=== PATIENT | female | born 1990 | race Caucasian/White ===

== ENCOUNTER 2016-07-04 00:46 | Emergency (ER) | payer OTHER ==
[~2016-07-04] VITALS: Ht 152.4 cm; Wt 90.7 kg
[~2016-07-04 00:46] MED LIST: /AUGM875TA OR; IBUP80TA PO; VICO5TAB OR; VITAPRTA PO
[2016-07-04] MEDS ORDERED: TRINTAB (00:57)
[2016-07-04] MEDS ORDERED: LIDOCAINE W/EPINEPHRINE 1% 20ML VIAL As Ordered ONE (01:38)
[2016-07-04] MEDS ORDERED: LIDOCAINE W/EPINEPHRINE 1% 20ML VIAL SC ONE (01:45)
[2016-07-04] MEDS ORDERED: BACTRIM 160MG/800MG DS TAB PO ONE (02:00)
[2016-07-04] MEDS ORDERED: BACT800T5 PO (02:04)
[2016-07-04 02:05] VITALS: BP 132/77
== END 2016-07-04 02:12 | disposition home or self-care (01) ==
LOC: M ED 02:04
DX: L02.214 Cutaneous abscess of groin (principal)

== ENCOUNTER → 2017-09-18 | Outpatient (REF) | payer OTHER ==
[2017-09-18 22:31] LABS: APPEARANCE, URINE CLOUDY (CLEAR); BACTERIA, URINE AUTO 1+ (NEGATIVE); BILIRUBIN, URINE AUTO NEGATIVE (NEGATIVE); BLOOD, URINE BLOOD 1+ (NEGATIVE); COLOR, URINE YELLOW (YELLOW); GLUCOSE, URINE (UA) AUTO NEGATIVE (NEGATIVE); KETONE, URINE AUTO TRACE mg/dL (NEGATIVE); LEUKOCYTE ESTERASE, URINE AUTO 3+ (NEGATIVE); MUCUS, URINE LARGE (NEGATIVE); NITRITE, URINE AUTO NEGATIVE (NEGATIVE); PROTEIN, URINE AUTO 1+ mg/dL (NEGATIVE); RBC, URINE AUTO 6 /HPF (0-3); SPECIFIC GRAVITY URINE AUTO 1.027 (1.002-1.035); SQUAMOUS EPITHELIAL CELL UR AU 5 /HPF (0-6); WBC, URINE AUTO 133 /HPF (0-3)
== END ==
LOC: M LAB REF 10:06
DX: N39.0 Urinary tract infection, site not specified (principal)

== ENCOUNTER → 2018-09-13 | Outpatient (REF) | payer OTHER ==
[~2018-09-13] MED LIST changes: +BACT800T5 PO; +TRINTAB
[2018-09-14 10:16] LABS: HEPATITIS B SURFACE ANTIBODY POSITIVE (POSITIVE); HEPATITIS C VIRUS ABY INDEX 0.1 INDEX (<0.8); HIV 1&2 SCREEN CENTAUR NEGATIVE (NEGATIVE)
== END ==
LOC: M LAB REF 12:26
PROVIDERS: ATTEND Obstetrics & Gynecology
DX: Z11.3 Encounter for screening for infections with a predominantly sexual mode of transmission (principal)

== ENCOUNTER → 2019-04-27 | Outpatient (REF) | payer OTHER | LOC: M LAB REF 12:00 | PROVIDERS: ATTEND Physician Assistant | DX: J11.1 Influenza due to unidentified influenza virus with other respiratory manifestations (principal) ==

== ENCOUNTER → 2019-10-11 | Outpatient (CLI) | payer OTHER ==
[2019-12-16 11:11] LABS: FOLLICLE STIMULATING HORMONE 7.6 mIU/mL; GLUCOSE,RANDOM 90 MG/DL (LESS THAN 200)
[2019-12-16 11:12] LABS: HCG, SERUM QUALITATIVE NEGATIVE (NEGATIVE); PROLACTIN 4.2 NG/ML
[2019-12-17 08:00] LABS: DEHYDROEPIANDROSTERONE SULFATE See Separate Report MCG/DL
[2019-12-17 08:01] LABS: 17 HYDROXY PROGESTERONE SEE SEPARATE REPORT
== END ==
LOC: M LAB 15:30
PROVIDERS: ATTEND Obstetrics & Gynecology Obstetrics
DX: N92.6 Irregular menstruation, unspecified (principal)

== ENCOUNTER → 2019-10-11 | Outpatient (CLI) | payer OTHER ==
[2019-11-28 20:07] LABS: BASO % 0.4 % (0.0-1.0); EOS # 0.2 10^3/uL (0.0-0.5); EOS % 3.2 % (0.0-3.0); HEMATOCRIT 40.5 % (36.0-47.0); HEMOGLOBIN 13.5 g/dl (12.0-15.5); LYMPH # 2.1 10^3/uL (1.5-5.0); LYMPH % 27.7 % (24.0-44.0); MEAN CORPUSCULAR HEMOGLOBIN 29.3 pg (27.0-33.0); MEAN CORPUSCULAR HGB CONC 33.3 g/dl (32.0-36.5); MONO # 0.5 10^3/uL (0.0-0.8); MONO % 6.6 % (0.0-5.0); NEUTROPHILS # 4.6 10^3/uL (1.5-8.5); NEUTROPHILS % 61.7 % (36.0-66.0); PLATELET COUNT, AUTOMATED 277 10^3/uL (150-450); WHITE BLOOD COUNT 7.5 10^3/uL (4.0-10.0)
[2019-12-16 11:13] LABS: ALT/SGPT 36 IU/L (0-32); BILIRUBIN,TOTAL 0.2 MG/DL (0.2-1.0); BLOOD UREA NITROGEN 19 MG/DL (7-18); CALCIUM LEVEL 8.9 MG/DL (8.5-10.1); CARBON DIOXIDE LEVEL 26 mmol/L (20-29); CHLORIDE LEVEL 109 MEQ/L (98-107); CREATININE FOR GFR 0.79 MG/DL (0.55-1.30); GLOMERULAR FILTRATION RATE > 60.0 (>60); GLUCOSE, FASTING 93 MG/DL (70-100); POTASSIUM SERUM 4.5 MEQ/L (3.5-5.1); SODIUM LEVEL 141 MEQ/L (136-145)
[2019-12-16 11:14] LABS: ALBUMIN 3.5 GM/DL (3.2-5.2); CHOLESTEROL LEVEL 173 MG/DL (<200); CHOLESTEROL RISK RATIO 3.604 (<5); FREE T4 0.89 NG/DL (0.76-1.46); HDL CHOLESTEROL 48 MG/DL (>40); LDL CHOLESTEROL 99.4 MG/DL (<100); NON-HDL-C 125 MG/DL; TOTAL 25(OH) VITAMIN D 17.7 NG/ML (30.0-100.0); TOTAL PROTEIN 7.3 GM/DL (6.4-8.2); TRIGLYCERIDES LEVEL 128 MG/DL (<150)
== END ==
LOC: M LAB 15:55
PROVIDERS: ATTEND Obstetrics & Gynecology Obstetrics
DX: N92.6 Irregular menstruation, unspecified (principal)

== ENCOUNTER → 2019-10-28 | Outpatient (REF) | payer OTHER | LOC: M LAB REF 15:54 | PROVIDERS: ATTEND Physician Assistant | DX: J02.9 Acute pharyngitis, unspecified (principal) ==

== ENCOUNTER → 2020-03-04 | Outpatient (REF) | payer OTHER | LOC: M LAB REF 15:08 | PROVIDERS: ATTEND Physician Assistant | DX: J02.9 Acute pharyngitis, unspecified (principal) ==

== ENCOUNTER → 2020-05-08 | Outpatient (REF) | payer OTHER ==
[2020-05-08 12:33] LABS: BASO % 0.4 % (0.0-1.0); EOS # 0.3 10^3/uL (0.0-0.5); HEMATOCRIT 44.2 % (36.0-47.0); HEMOGLOBIN 14.5 g/dl (12.0-15.5); LYMPH # 2.9 10^3/uL (1.5-5.0); LYMPH % 37.6 % (24.0-44.0); MEAN CORPUSCULAR HEMOGLOBIN 28.1 pg (27.0-33.0); MEAN CORPUSCULAR HGB CONC 32.8 g/dl (32.0-36.5); MEAN CORPUSCULAR VOLUME 85.7 fl (80.0-96.0); MONO # 0.5 10^3/uL (0.0-0.8); MONO % 6.2 % (2.0-8.0); NEUTROPHILS % 51.4 % (36.0-66.0); PLATELET COUNT, AUTOMATED 314 10^3/uL (150-450); RED BLOOD COUNT 5.16 10^6/uL (4.00-5.40); WHITE BLOOD COUNT 7.7 10^3/uL (4.0-10.0)
[2020-05-08 13:10] LABS: ALBUMIN 3.5 GM/DL (3.2-5.2); ALT/SGPT 34 U/L (12-78); BILIRUBIN,TOTAL 0.2 MG/DL (0.2-1.0); BLOOD UREA NITROGEN 14 MG/DL (7-18); CALCIUM LEVEL 8.8 MG/DL (8.5-10.1); CARBON DIOXIDE LEVEL 25 MEQ/L (21-32); CHLORIDE LEVEL 109 MEQ/L (98-107); CHOLESTEROL LEVEL 185 MG/DL (<200); CHOLESTEROL RISK RATIO 4.625 (<5); CREATININE FOR GFR 0.81 MG/DL (0.55-1.30); FREE T4 0.92 NG/DL (0.76-1.46); GLOMERULAR FILTRATION RATE > 60.0 (>60); GLUCOSE, FASTING 95 MG/DL (70-100); HDL CHOLESTEROL 40 MG/DL (>40); LDL CHOLESTEROL 125 MG/DL (<100); NON-HDL-C 145 MG/DL; SODIUM LEVEL 140 MEQ/L (136-145); TOTAL PROTEIN 7.2 GM/DL (6.4-8.2); TRIGLYCERIDES LEVEL 98 MG/DL (<150)
== END ==
LOC: M LAB REF 11:49
PROVIDERS: ATTEND Physician Assistant
DX: E66.9 Obesity, unspecified (principal)

== ENCOUNTER → 2021-09-21 | Outpatient (CLI) | payer OTHER | LOC: M WHC 07:41 | PROVIDERS: ATTEND Family Medicine Addiction Medicine | DX: N64.4 Mastodynia (principal) ==

== ENCOUNTER → 2022-09-12 | Outpatient (CLI) | payer OTHER | LOC: M LAB 08:43 | PROVIDERS: ATTEND Surgery | DX: Z86.39 Personal history of other endocrine, nutritional and metabolic disease (principal) ==

== ENCOUNTER → 2022-11-09 | Outpatient (REF) | payer OTHER ==
[2022-11-11 06:09] LABS: MUMPS VIRUS IgG ANTIBODY <9.0 AU/mL (Immune >10.9); RUBEOLA IgG ANTIBODY 41.6 AU/mL (Immune >16.4)
== END ==
LOC: M LAB REF 16:36
PROVIDERS: ATTEND Family Medicine Addiction Medicine
DX: Z28.39 Other underimmunization status (principal)

== ENCOUNTER 2023-01-05 12:54 | Day surgery (SDC) | payer OTHER ==
[~2023-01-05] VITALS: Ht 152.4 cm; Wt 119.9 kg
[~2023-01-05 12:54] MED LIST changes: +BUPR150T12 PO; +LIDOCAINE 2% 100MG/5ML SDV (FOR ANES.) As Ordered ONE; +NS 1,000 ML IV ONE; +SUBO8MIS SL; +propofoL 200 MG/20 ML VIAL As Ordered ONE
[2023-01-05] MEDS ORDERED: fentaNYL 100 MCG/2 ML INJECTION As Ordered ONE (14:16)
[2023-01-05 14:55] VITALS: TEMP 97.5
[2023-01-05 15:12] VITALS: BP 143/98; O2SAT 95
== END 2023-01-05 15:16 | disposition home or self-care (01) ==
LOC: M OPP 12:54
PROVIDERS: ATTEND Internal Medicine Gastroenterology
DX: Z01.818 Encounter for other preprocedural examination (principal); E66.01 Morbid (severe) obesity due to excess calories; K29.70 Gastritis, unspecified, without bleeding; F17.290 Nicotine dependence, other tobacco product, uncomplicated; Z79.891 Long term (current) use of opiate analgesic; Z79.899 Other long term (current) drug therapy; Z88.1 Allergy status to other antibiotic agents; Z88.5 Allergy status to narcotic agent

== ENCOUNTER → 2023-03-02 | Outpatient (CLI) | payer OTHER ==
[~2023-03-02] MED LIST changes: -LIDOCAINE 2% 100MG/5ML SDV (FOR ANES.) As Ordered ONE; -NS 1,000 ML IV ONE; -propofoL 200 MG/20 ML VIAL As Ordered ONE
[2023-03-02 09:13] LABS: HEMOGLOBIN 14.2 g/dl (12.0-15.5); MEAN CORPUSCULAR HEMOGLOBIN 28.1 pg (27.0-33.0); PLATELET COUNT, AUTOMATED 322 10^3/uL (150-450); RED BLOOD COUNT 5.06 10^6/uL (4.00-5.40); WHITE BLOOD COUNT 8.5 10^3/uL (4.0-10.0)
[2023-03-02 09:37] LABS: ALBUMIN 3.5 G/DL (3.2-5.2); ALKALINE PHOSPHATASE 100 U/L (46-116); ALT/SGPT 23 U/L (7.0-40); AST/SGOT 15 U/L (<34); BILIRUBIN,TOTAL 0.3 MG/DL (0.3-1.2); BLOOD UREA NITROGEN 13 MG/DL (9-23); CALCIUM LEVEL 8.8 MG/DL (8.5-10.1); CARBON DIOXIDE LEVEL 27 MMOL/L (20-31); CHLORIDE LEVEL 109 MMOL/L (98-107); CHOLESTEROL LEVEL 165 MG/DL (<200); CHOLESTEROL RISK RATIO 4.85 (<5); CREATININE FOR GFR 0.75 MG/DL (0.55-1.30); GLOMERULAR FILTRATION RATE > 60.0 (>60); GLUCOSE, FASTING 96 MG/DL (60-100); SODIUM LEVEL 139 MMOL/L (136-145); TOTAL PROTEIN 6.8 G/DL (5.7-8.2); TRIGLYCERIDES LEVEL 75 MG/DL (<150)
== END ==
LOC: M LAB 08:47
PROVIDERS: ATTEND Internal Medicine Cardiovascular Disease
DX: E66.01 Morbid (severe) obesity due to excess calories (principal); Z82.49 Family history of ischemic heart disease and other diseases of the circulatory system

== ENCOUNTER 2023-07-04 08:49 | Emergency (ER) | payer OTHER ==
[~2023-07-04] VITALS: Ht 160 cm; Wt 115.2 kg
[2023-07-04] MEDS ORDERED: OMEP40CA5 (08:56)
[2023-07-04] MEDS ORDERED: ENOX40IN3 (08:56)
[2023-07-04] MEDS ORDERED: ACE65ERTAB PO (08:57)
[2023-07-04] MEDS ORDERED: MIREIUD (08:59)
[2023-07-04 09:30] LABS: BASO % 0.8 % (0.0-1.0); EOS # 0.2 10^3/uL (0.0-0.5); EOS % 4.6 % (0.0-3.0); HEMATOCRIT 39.5 % (36.0-47.0); LYMPH # 2.1 10^3/uL (1.5-5.0); LYMPH % 40.1 % (24.0-44.0); MEAN CORPUSCULAR HEMOGLOBIN 28.3 pg (27.0-33.0); MEAN CORPUSCULAR HGB CONC 32.9 g/dl (32.0-36.5); MEAN CORPUSCULAR VOLUME 86.1 fl (80.0-96.0); MONO # 0.4 10^3/uL (0.0-0.8); MONO % 7.6 % (2.0-8.0); NEUTROPHILS # 2.5 10^3/uL (1.5-8.5); NEUTROPHILS % 46.7 % (36.0-66.0); PLATELET COUNT, AUTOMATED 399 10^3/uL (150-450); RED BLOOD COUNT 4.59 10^6/uL (4.00-5.40); WHITE BLOOD COUNT 5.3 10^3/uL (4.0-10.0)
[2023-07-04 09:56] LABS: BLOOD UREA NITROGEN 10 MG/DL (9-23); CALCIUM LEVEL 8.9 MG/DL (8.5-10.1); CARBON DIOXIDE LEVEL 25 MMOL/L (20-31); CHLORIDE LEVEL 110 MMOL/L (98-107); CREATININE FOR GFR 0.77 MG/DL (0.55-1.30); GLOMERULAR FILTRATION RATE > 60.0 (>60); GLUCOSE, FASTING 94 MG/DL (60-100); POTASSIUM SERUM 4.1 MMOL/L (3.5-5.1); SODIUM LEVEL 142 MMOL/L (136-145)
[2023-07-04 12:43] VITALS: BP 121/76; TEMP 97.3; O2SAT 98
== END 2023-07-04 12:46 | disposition home or self-care (01) ==
LOC: M ED 08:49
DX: G89.18 Other acute postprocedural pain (principal); Z98.84 Bariatric surgery status; R51.9 Headache, unspecified; F32.A Depression, unspecified; F41.9 Anxiety disorder, unspecified; Z79.899 Other long term (current) drug therapy; Z88.5 Allergy status to narcotic agent; Z88.0 Allergy status to penicillin

== ENCOUNTER → 2024-01-29 | Outpatient (CLI) | payer OTHER ==
[~2024-01-29] MED LIST changes: +ACE65ERTAB PO; +ENOX40IN3; +MIREIUD; +OMEP40CA5
[2024-01-29 19:31] LABS: HEMATOCRIT 41.5 % (36.0-47.0); HEMOGLOBIN 13.8 g/dl (12.0-15.5); MEAN CORPUSCULAR HEMOGLOBIN 28.6 pg (27.0-33.0); MEAN CORPUSCULAR HGB CONC 33.3 g/dl (32.0-36.5); MEAN CORPUSCULAR VOLUME 85.9 fl (80.0-96.0); PLATELET COUNT, AUTOMATED 312 10^3/uL (150-450); RED BLOOD COUNT 4.83 10^6/uL (4.00-5.40); WHITE BLOOD COUNT 7.6 10^3/uL (4.0-10.0)
[2024-01-29 19:56] LABS: HEMOGLOBIN A1c 4.8 % (4.0-6.0)
[2024-01-29 20:05] LABS: FERRITIN 22.1 NG/ML (7.3-270.7)
[2024-01-29 20:06] LABS: ALBUMIN 3.6 G/DL (3.2-5.2); ALKALINE PHOSPHATASE 118 U/L (35-104); ALT/SGPT 22 U/L (7.0-40); AST/SGOT 15 U/L (<34); BILIRUBIN,TOTAL 0.3 MG/DL (0.3-1.2); BLOOD UREA NITROGEN 8 MG/DL (9-23); CALCIUM LEVEL 9.1 MG/DL (8.5-10.1); CARBON DIOXIDE LEVEL 25 MMOL/L (20-31); CHLORIDE LEVEL 107 MMOL/L (98-107); CREATININE FOR GFR 0.72 MG/DL (0.55-1.30); GLOMERULAR FILTRATION RATE > 60.0 (>60); GLUCOSE, FASTING 83 MG/DL (60-100); IRON (FE) 45 UG/DL (50-170); PERCENT SATURATION 12.5 % (13.2-45.0); PHOSPHORUS LEVEL 3.1 MG/DL (2.5-4.9); POTASSIUM SERUM 4.2 MMOL/L (3.5-5.1); SODIUM LEVEL 139 MMOL/L (136-145); TOTAL IRON BINDING CAPACITY 361 UG/DL (250-425); TOTAL PROTEIN 6.9 G/DL (5.7-8.2); VITAMIN B12 LEVEL 291 PG/ML (211-911)
[2024-01-29 20:07] LABS: FOLATE 15.73 NG/ML (>5.4); TOTAL 25(OH) VITAMIN D 31.3 NG/ML (20.0-100.0)
== END ==
LOC: M LAB 17:40
PROVIDERS: ATTEND Physician Assistant Surgical
DX: K91.2 Postsurgical malabsorption, not elsewhere classified (principal); Z98.84 Bariatric surgery status; Z86.39 Personal history of other endocrine, nutritional and metabolic disease

== ENCOUNTER → 2024-04-24 | Outpatient (REF) | payer OTHER ==
[2024-04-24 22:16] LABS: APPEARANCE, URINE HAZY (CLEAR); BACTERIA, URINE AUTO 1+ (NEGATIVE); BILIRUBIN, URINE AUTO NEGATIVE (NEGATIVE); BLOOD, URINE BLOOD NEGATIVE (NEGATIVE); CALCIUM OXALATE CRYSTALS SMALL; COLOR, URINE YELLOW (YELLOW); GLUCOSE, URINE (UA) AUTO NEGATIVE (NEGATIVE); KETONE, URINE AUTO TRACE mg/dL (NEGATIVE); LEUKOCYTE ESTERASE, URINE AUTO NEGATIVE (NEGATIVE); MUCUS, URINE SMALL (NEGATIVE); NITRITE, URINE AUTO NEGATIVE (NEGATIVE); PROTEIN, URINE AUTO NEGATIVE (NEGATIVE); RBC, URINE AUTO 0 /HPF (0-3); SPECIFIC GRAVITY URINE AUTO 1.023 (1.002-1.035); SQUAMOUS EPITHELIAL CELL UR AU 3 /HPF (0-6); WBC, URINE AUTO 2 /HPF (0-3)
== END ==
LOC: M LAB REF 21:48
PROVIDERS: ATTEND Physician Assistant Medical
DX: N39.0 Urinary tract infection, site not specified (principal)

== ENCOUNTER 2024-05-22 12:35 | Emergency (ER) | payer OTHER ==
[~2024-05-22] VITALS: Ht 152.4 cm; Wt 93.3 kg
[2024-05-22 12:50] VITALS: BP 132/96; TEMP 97.4; O2SAT 100
[2024-05-22] MEDS ORDERED: LORA-1041 (13:13)
[2024-05-22 14:41] LABS: BASO % 0.4 % (0.0-1.0); EOS # 0.1 10^3/uL (0.0-0.5); EOS % 1.1 % (0.0-3.0); HEMATOCRIT 40.8 % (36.0-47.0); HEMOGLOBIN 13.7 g/dl (12.0-15.5); LYMPH # 2.2 10^3/uL (1.5-5.0); LYMPH % 30.1 % (24.0-44.0); MEAN CORPUSCULAR HEMOGLOBIN 28.9 pg (27.0-33.0); MEAN CORPUSCULAR HGB CONC 33.6 g/dl (32.0-36.5); MEAN CORPUSCULAR VOLUME 86.1 fl (80.0-96.0); MONO # 0.4 10^3/uL (0.0-0.8); NEUTROPHILS # 4.5 10^3/uL (1.5-8.5); NEUTROPHILS % 62.1 % (36.0-66.0); PLATELET COUNT, AUTOMATED 275 10^3/uL (150-450); RED BLOOD COUNT 4.74 10^6/uL (4.00-5.40); WHITE BLOOD COUNT 7.3 10^3/uL (4.0-10.0)
[2024-05-22 15:12] LABS: CPK CREATINE PHOSPHOKINASE 77 U/L (34-145)
[2024-05-22 15:13] LABS: BLOOD UREA NITROGEN 12 MG/DL (9-23); CARBON DIOXIDE LEVEL 27 MMOL/L (20-31); CHLORIDE LEVEL 104 MMOL/L (98-107); CK-MB VALUE MASS < 1.0 NG/ML (<3.6); CREATININE FOR GFR 0.65 MG/DL (0.55-1.30); GLOMERULAR FILTRATION RATE > 60.0 (>60); GLUCOSE, FASTING 101 MG/DL (60-100); MB/CK RELATIVE INDEX 1.29 (< OR =4); SODIUM LEVEL 140 MMOL/L (136-145)
[2024-05-22 15:15] LABS: THYROID STIMULATING HORMONE 1.052 uIU/ML (0.55-4.78)
[2024-05-22 15:20] LABS: HCG, SERUM QUALITATIVE NEGATIVE (NEGATIVE)
== END 2024-05-22 16:25 | disposition home or self-care (01) ==
LOC: M ED 12:35
DX: I10 Essential (primary) hypertension (principal); R42 Dizziness and giddiness; R11.0 Nausea; F17.290 Nicotine dependence, other tobacco product, uncomplicated; Z88.1 Allergy status to other antibiotic agents; Z88.5 Allergy status to narcotic agent; Z79.1 Long term (current) use of non-steroidal anti-inflammatories (NSAID); Z79.899 Other long term (current) drug therapy

== ENCOUNTER → 2024-07-01 | Outpatient (CLI) | payer OTHER ==
[~2024-07-01] MED LIST changes: +LORA-1041
[2024-07-01 15:04] LABS: HEMATOCRIT 42.5 % (36.0-47.0); MEAN CORPUSCULAR HEMOGLOBIN 28.3 pg (27.0-33.0); MEAN CORPUSCULAR HGB CONC 32.9 g/dl (32.0-36.5); PLATELET COUNT, AUTOMATED 373 10^3/uL (150-450); RED BLOOD COUNT 4.94 10^6/uL (4.00-5.40); WHITE BLOOD COUNT 6.8 10^3/uL (4.0-10.0)
[2024-07-01 15:31] LABS: IRON (FE) 81 UG/DL (50-170); PERCENT SATURATION 22.8 % (13.2-45.0); TOTAL IRON BINDING CAPACITY 356 UG/DL (250-425)
[2024-07-01 15:32] LABS: ALBUMIN 3.4 G/DL (3.2-5.2); ALKALINE PHOSPHATASE 132 U/L (35-104); ALT/SGPT 19 U/L (7.0-40); AST/SGOT 16 U/L (<34); BILIRUBIN,TOTAL 0.3 MG/DL (0.3-1.2); BLOOD UREA NITROGEN 11 MG/DL (9-23); CALCIUM LEVEL 9.3 MG/DL (8.5-10.1); CARBON DIOXIDE LEVEL 28 MMOL/L (20-31); CHLORIDE LEVEL 107 MMOL/L (98-107); CREATININE FOR GFR 0.68 MG/DL (0.55-1.30); GLOMERULAR FILTRATION RATE > 90.0 (>60); GLUCOSE, FASTING 87 MG/DL (60-100); MAGNESIUM LEVEL 2.1 MG/DL (1.8-2.4); PHOSPHORUS LEVEL 3.9 MG/DL (2.5-4.9); POTASSIUM SERUM 4.7 MMOL/L (3.5-5.1); SODIUM LEVEL 142 MMOL/L (136-145); TOTAL PROTEIN 7.1 G/DL (5.7-8.2)
[2024-07-01 15:36] LABS: FOLATE 11.75 NG/ML (>5.4); TOTAL 25(OH) VITAMIN D 33.9 NG/ML (20.0-100.0)
[2024-07-01 15:37] LABS: FERRITIN 29.3 NG/ML (7.3-270.7); VITAMIN B12 LEVEL 428 PG/ML (211-911)
[2024-07-01 17:05] LABS: HEMOGLOBIN A1c 4.7 % (4.0-6.0)
== END ==
LOC: M LAB 13:43
PROVIDERS: ATTEND Physician Assistant Surgical
DX: K91.2 Postsurgical malabsorption, not elsewhere classified (principal); Z98.84 Bariatric surgery status; Z86.39 Personal history of other endocrine, nutritional and metabolic disease

== ENCOUNTER → 2024-11-05 | Outpatient (REF) | payer OTHER ==
[~2024-11-05] MED LIST changes: -ACE65ERTAB PO; +ACET-1593 PO
[2024-11-06 10:26] LABS: URINE PREG TEST NEGATIVE (NEGATIVE)
== END ==
LOC: M LAB REF 09:30
PROVIDERS: ATTEND Physician Assistant
DX: Z32.00 Encounter for pregnancy test, result unknown (principal)

== ENCOUNTER → 2024-11-18 | Outpatient (REF) | payer OTHER, SELFPAY ==
[2024-11-18 15:14] LABS: ALT/SGPT 24 U/L (7.0-40); AST/SGOT 23 U/L (<34); CALCIUM LEVEL 8.9 MG/DL (8.5-10.1); CARBON DIOXIDE LEVEL 28 MMOL/L (20-31); CHLORIDE LEVEL 104 MMOL/L (98-107); CREATININE FOR GFR 0.72 MG/DL (0.55-1.30); GLOMERULAR FILTRATION RATE > 90.0 (>60); POTASSIUM SERUM 4.4 MMOL/L (3.5-5.1); SODIUM LEVEL 136 MMOL/L (136-145)
[2024-11-18 15:15] LABS: PLATELET COUNT, AUTOMATED 301 10^3/uL (150-450)
[2024-11-18 15:19] LABS: FREE T4 1.16 NG/DL (0.89-1.76)
[2024-11-18 15:30] LABS: ESTIMATED AVERAGE GLUCOSE 100.0 MG/DL (60-110)
== END ==
LOC: M LAB REF 14:12
PROVIDERS: ATTEND Family Medicine Addiction Medicine
DX: R42 Dizziness and giddiness (principal)